=== PATIENT | male | born 1935 | race African-American/Black ===

== ENCOUNTER 2019-10-01 12:46 | Emergency (ER) | payer OTHER ==
[~2019-10-01] VITALS: Ht 175.3 cm; Wt 120.2 kg
[~2019-10-01 12:46] MED LIST: FLOMAX0.4 MG PO; FLONASE 0.05%50 MCG NASAL; GERI-LANTA LIQ355 ML PO; MIRALAX17 GM PO; NORVASC5 MG PO; PRILOSEC 20 MG20 MG PO; PRINIVIL10 MG PO; REFRESH TEARS15 ML OPHTHALMIC; SIMVASTATIN10 MG PO; TYLENOL325 MG PO; UNICOMPLEX M TA1 TA1 PO
[2019-10-01] MEDS ORDERED: LIDODERM1 EACH TRANSDERM (14:40)
[2019-10-01 14:53] VITALS: BP 162/73
== END 2019-10-01 14:54 | disposition home or self-care (01) ==
LOC: ER 12:46
DX: S16.1XXA Strain of muscle, fascia and tendon at neck level, initial encounter (principal); I10 Essential (primary) hypertension; K21.9 Gastro-esophageal reflux disease without esophagitis; E78.5 Hyperlipidemia, unspecified; Z79.899 Other long term (current) drug therapy; V49.9XXA Car occupant (driver) (passenger) injured in unspecified traffic accident, initial encounter; Y93.89 Activity, other specified; Y92.89 Other specified places as the place of occurrence of the external cause; Y99.8 Other external cause status